=== PATIENT | male | born 1935 | race Caucasian/White ===

== ENCOUNTER 2024-02-27 17:49 | Emergency (ER) | payer MEDICARE, SELFPAY ==
[2024-02-27 17:55] VITALS: BP 158/72; PULSE 84; TEMP 36.7; O2SAT 96; BMI 25.8
--- NOTE | 2024-02-27 18:22 | ED.GENADUL1 ---
HPI HPI - General Adult General Chief complaint: Back Pain/Injury Stated complaint: LOWER BACK PAIN Time Seen by Provider: 02/27/24 17:56 Source: patient Mode of arrival: Wheelchair History of Present Illness HPI narrative: Patient is a 88-year-old male presents to the ER for evaluation of low back pain. He denies any fevers or chills. Denies dysuria. Denies anterior abdominal pain. He lives with his son and is fairly sedentary, uses a walker to ambulate. He has a history of peripheral neuropathy but denies any radicular pain into his lower legs. He denies any problem with bowel or bladder movements. Patient sits most of the day and over the past week has noticed increased soreness to his lower back, he did take Tylenol prior to arrival with improvement in symptoms. Patient appears in no distress at bedside. Onset (ago): week(s) (1) Location: Reports buttocks Radiation: Reports non-radiation Severity: mild Quality: Reports aching Pain Consistency: Reports constant Relieving factors: Reports movement Exacerbating factors: Reports other (sitting) Associated symptoms: Reports denies other symptoms Treatments prior to arrival: Reports none Related Data Allergies Allergy/AdvReac Type Severity Reaction Status Date / Time No Known Drug Allergies Allergy Verified 02/27/24 17:59 Opioid HPI Opioid Management Most Recent Opioid Data: No Data to Display Review of Systems ROS Constitutional Denies: fever or chills Ears, nose, mouth, and throat Denies: neck pain Cardiovascular Denies: chest pain, palpitations or edema Respiratory Denies: shortness of breath or cough Gastrointestinal Denies: abdominal pain or nausea Genitourinary Denies: painful urination Musculoskeletal Reports: back pain; Denies: neck pain, extremity pain or extremity swelling Integumentary/Breast Reports: redness (buttock); Denies: rash or itching Neurological Denies: headache Psychiatric Denies: anxiety Endocrine Denies: excessive urination Hematologic/Lymphatic Denies: easy bruising Exam Narrative Exam Narrative: Vital Signs reviewed and nurse's notes reviewed. The patient is not hypoxic. General: Alert, no acute distress, patient resting comfortably Skin: warm, intact, no pallor noted, no rash Head: Normocephalic, atraumatic Eye: Normal conjunctiva, EOMI Respiratory: No acute distress Abdomen: Normal bowel sounds, soft, nontender, no masses detected. No rebound, guarding, or rigidity noted. No midline pulsatile mass. Back: inspection of the back shows no obvious deformity, no swelling, no ecchymosis, contusion, abrasion, swelling, erythema, fluctuance or induration. No step offs or crepitus noted. No CVA tenderness noted bilaterally. Tenderness noted to superior aspect of the buttocks, localized erythema of the skin that does not jewel on palpation directly over the sacrum concerning for a stage I pressure ulcer approximate 4 inches by 2 inches. Patient readily notes that this is his area of soreness. There is currently no skin breakdown or desquamation noted.. no extension of erythema into the groin. Straight leg raise on left is negative . Straight leg raise on right is negative . Musculoskeletal: No deformity noted to bilateral lower extremities. no cyanosis or mottling noted. normal pulses at DP and PT 2+ bilaterally and symmetrically. Normal 5/5 strength at ankles with plantar flexion 4/5 with dorsiflexion.. Patient is able to ambulate with assistance. denies pain with ambulation. peripheral neuropathy noted in lower legs. Neurological: alert and oriented x4, normal sensory and motor observed. DTR 1+ at patellar and Achilles bilaterally. neg clonus Psychiatric: Cooperative Constitutional Vital Signs, click to edit/add: Last Vital Signs Temp 98.0 F 02/27/24 17:55 Pulse 84 02/27/24 17:55 Resp 16 02/27/24 17:55 BP 158/72 H 02/27/24 17:55 Pulse Ox 96 02/27/24 17:55 O2 Del Method Room Air 02/27/24 17:55 Course Vital Signs Vital signs: Vital Signs Temperature 98.0 F 02/27/24 17:55 Pulse Rate 84 02/27/24 17:55 Respiratory Rate 16 02/27/24 17:55 Blood Pressure 158/72 H 02/27/24 17:55 Pulse Oximetry 96 02/27/24 17:55 Oxygen Delivery Method Room Air 02/27/24 17:55 Temperature 98.0 F 02/27/24 17:55 Pulse Rate 84 02/27/24 17:55 Respiratory Rate 16 02/27/24 17:55 Blood Pressure 158/72 H 02/27/24 17:55 Pulse Oximetry 96 02/27/24 17:55 Oxygen Delivery Method Room Air 02/27/24 17:55 Medical Decision Making MDM Narrative Medical decision making narrative: Reviewed clinical exam at bedside along with patient's history. She denies fever fall or trauma. We discussed utility of imaging but feel is not clinically indicated. He can stand and move without any significant increase in pain demonstrated acceptable forward flexion and extension along with rotation without any significant increase in pain. He has point tender to area of erythema on the buttock that is nonblanchable concerning for a stage I pressure ulcer. Patient sits on the edge of his bed in a certain position while he is on his iPad most of the day. We discussed sitting on a doughnut, offloading the sacrum and coccyx area with pressure-relief padding or donut. We are going to try and apply a barrier pad from the floor nurses as early prevention and the patient will need to follow-up with his family doctor for ongoing evaluation. He is already on a high-protein diet for nutrition and I do not recommend antibiotics at this time as the skin is intact. Patient may continue with Tylenol for pain. Patient and his son at bedside are both fully aware of how rapidly a pressure ulcer can worsen if it is not relieved. Both verbalized understanding to reposition frequently and avoid direct pressure on the sacrum in the home. The patient is to followup with primary care physician in next 2-3 days or to return to the emergency department should any of the signs or symptoms worsen or new symptoms develop. Patient had questions answered. The patient agrees with the following Diagnosis and Treatment plan and the patient will be discharged home. Discharge Plan Discharge Chief Complaint: Back Pain/Injury Clinical Impression: Decubitus ulcer of back, stage 1 Patient Disposition: Home, Self-Care Time of Disposition Decision: 18:25 Condition: Good Print Language: Irish Instructions: Pressure Injury (ED) Referrals: AUNG [email or web address] [Primary Care Provider] - As soon as possible
== END 2024-02-27 18:55 | disposition home or self-care (01) ==
PROVIDERS: Emergency Provider Emergency Medicine; PCP Internal Medicine
DX: L89.151 Pressure ulcer of sacral region, stage 1 (principal); G62.9 Polyneuropathy, unspecified
CPT/HCPCS: 99281